=== PATIENT | female | born 1960 ===

== ENCOUNTER 2018-04-20 05:42 | Inpatient (IN) | payer BC, OTHER ==
[~2018-04-20] VITALS: Ht 165.1 cm; Wt 94.4 kg
[2018-04-20] MEDS ORDERED: THROMBIN 5,000 UNIT VIAL TP ONE (06:59)
[2018-04-20] MEDS ORDERED: INDIGO CARMINE 0.8%, 5ML ONE (06:59)
[2018-04-20] MEDS ORDERED: BACITRACIN 50,000 UNIT ONE (06:59)
[2018-04-20] MEDS ORDERED: LIDOCAINE/PF 1%, 30ML ONE (06:59)
[2018-04-20] MEDS ORDERED: BUPIVACAINE 0.25% ONE (06:59)
[2018-04-20] MEDS ORDERED: EPINEPHRINE 1 MG/ML, 1ML ONE (07:00)
[2018-04-20] MEDS ORDERED: LACTATED RINGERS 1,000 ML IV SCH (07:01)
[2018-04-20] MEDS ORDERED: LOSA50TA6 PO (07:08)
[2018-04-20] MEDS ORDERED: DICY10CA3 PO (07:08)
[2018-04-20] MEDS ORDERED: PIOG30TA3 PO (07:08)
[2018-04-20] MEDS ORDERED: GLYB5TAB3 PO (07:08)
[2018-04-20] MEDS ORDERED: OMEP-110 PO (07:08)
[2018-04-20] MEDS ORDERED: GABA600T2 PO (07:08)
[2018-04-20] MEDS ORDERED: CHLO4TAB22 PO (07:08)
[2018-04-20] MEDS ORDERED: METO5TAB2 PO (07:09)
[2018-04-20] MEDS ORDERED: DULA1.5P SC (07:09)
[2018-04-20 07:17] VITALS: BP 127/95
[2018-04-20] MEDS ORDERED: PROPOFOL 10 MG/ML, 20ML ONE ×4 (07:22)
[2018-04-20] MEDS ORDERED: FENTANYL PF 250 MCG/5ML ONE (07:22)
[2018-04-20] MEDS ORDERED: CEFAZOLIN 1,000 MG ONE ×2 (07:27)
[2018-04-20] MEDS ORDERED: SUCCINYLCHOLINE 20 MG/ML, 10ML ONE (07:30)
[2018-04-20] MEDS ORDERED: EPHEDRINE 50 MG/ML, 1ML ONE (07:35)
[2018-04-20] MEDS ORDERED: PHENYLEPHRINE 10 MG/ML ONE ×2 (07:35→07:37)
[2018-04-20] MEDS ORDERED: INSULIN SINGLE DOSE, ER SQ-INSULIN ONE ×2 (07:42→07:45)
[2018-04-20] MEDS ORDERED: ROCURONIUM 10 MG/ML,10ML ONE (07:47)
[2018-04-20] MEDS ORDERED: ONDANSETRON 2MG/ML, 2ML ONE (08:30)
[2018-04-20] MEDS ORDERED: DEXAMETHASONE 4 MG/ML, 1ML ONE ×2 (08:31)
[2018-04-20] MEDS ORDERED: BUPIVACAINE/PF 0.25% INFIL ONE (08:55)
[2018-04-20] MEDS ORDERED: MEPERIDINE/PF 25MG/0.5ML IVPush PRN (09:00)
[2018-04-20] MEDS ORDERED: HYDROmorphone 1 MG/ML, 1ML IV PRN (09:00)
[2018-04-20] MEDS ORDERED: OXYcodone 5 MG/5 ML ORAL.SOL UDC PO PRN (09:00)
[2018-04-20] MEDS ORDERED: ACETAMINOPHEN 325 MG TABLET PO PRN (09:00)
[2018-04-20] MEDS ORDERED: PROMETHAZINE 12.5 MG SUPP PR PRN (09:00)
[2018-04-20] MEDS: FENTANYL PF 100 MCG/2ML IV PRN ×4 (10:35→10:55)
[2018-04-20] MEDS ORDERED: FENTANYL PF 100 MCG/2ML ONE (10:42)
[2018-04-20] MEDS ORDERED: MORPHINE SULFATE 4 MG/ML, 1ML ONE (11:03)
[2018-04-20] MEDS: MORPHINE SULFATE 4 MG/ML, 1ML IVPush PRN ×2 (11:10→11:20)
[2018-04-20] MEDS ORDERED: DIAZEPAM 5 MG/ML, 2ML IV ONE (12:00)
[2018-04-20] MEDS ORDERED: DIAZEPAM 5 MG/ML, 2ML IV PRN (14:00)
[2018-04-20] MEDS ORDERED: HYDROcodone/APAP 5/325 TABLET PO PRN (14:00)
[2018-04-20] MEDS ORDERED: LABETALOL 5MG/ML, 20ML IV PRN (14:00)
[2018-04-20] MEDS ORDERED: ONDANSETRON 2MG/ML, 2ML IV PRN (14:00)
[2018-04-20] MEDS: NS + 20MEQ KCL 1,000 ML IV SCH (15:14)
[2018-04-20] MEDS: LABETALOL 5MG/ML, 20ML IV SCH ×2 (15:15→23:23)
[2018-04-20] MEDS ORDERED: INSULIN REGULAR 100 UNITS/ML, 3ML VIAL SQ-INSULIN SCH (16:00)
[2018-04-20] MEDS: CEFAZOLIN PMX 1GM/50ML 50 ML IVPB SCH (17:04)
[2018-04-20] MEDS: GABAPENTIN 300 MG CAPSULE PO SCH ×2 (17:04→20:16)
[2018-04-20] MEDS ORDERED: PRO AIR 90 MCG INH PRN (17:30)
[2018-04-20] MEDS ORDERED: ALBUTEROL SULFATE 2.5 MG/3 ML NPPB PRN (17:30)
[2018-04-20] MEDS: INSULIN LISPRO 100 UNITS/ML, PEN SQ-INSULIN SCH ×2 (18:15→20:35)
[2018-04-20 19:44] VITALS: BP 121/71
[2018-04-20] MEDS: CHLORPHENIRAMINE 4 MG TABLET PO PRN (20:16)
[2018-04-20 23:24] VITALS: BP 99/63
[2018-04-21] MEDS: CEFAZOLIN PMX 1GM/50ML 50 ML IVPB SCH (00:07)
[2018-04-21] MEDS: NS + 20MEQ KCL 1,000 ML IV SCH ×3 (00:07→14:00)
[2018-04-21 03:40] VITALS: BP 100/65
[2018-04-21] MEDS: DIAZEPAM 5 MG TABLET PO PRN ×3 (04:13→19:53)
[2018-04-21 05:42] LABS: ANION GAP 5 mmol/L (5-15); CALCIUM 8.1 mg/dL (8.5-10.1); CHLORIDE 110 mmol/L (98-107); CREATININE 0.58 mg/dL (0.55-1.02)
[2018-04-21 05:43] LABS: BASOPHILS # (AUTO) 0.02 x10^3/uL (0-0.1); BASOPHILS % (AUTO) 0 % (0-1); EOSINOPHILS # (AUTO) 0.01 x10^3/uL (0-0.4); EOSINOPHILS % (AUTO) 0 % (1-7); LYMPHOCYTES # (AUTO) 1.83 x10^3/uL (1-3.4); LYMPHOCYTES % (AUTO) 21 % (22-44); MD NO; MEAN CORPUSCULAR HEMOGLOBIN 32.1 pg (27.0-34.8); MEAN CORPUSCULAR HGB CONC 33.8 g/dL (32.4-35.8); MEAN PLATELET VOLUME 9.6 fL (7.4-10.4); MONOCYTES # (AUTO) 0.44 x10^3/uL (0.2-0.8); MONOCYTES % (AUTO) 5 % (2-9); NEUTROPHILS # (AUTO) 6.64 x10^3/uL (1.8-6.8); NEUTROPHILS % (AUTO) 74 % (42-75); PLATELET COUNT 151 x10^3/uL (130-400); RED BLOOD COUNT 4.31 x10^6/uL (3.82-5.3)
[2018-04-21] MEDS: LABETALOL 5MG/ML, 20ML IV SCH ×3 (06:00→22:00)
[2018-04-21 06:27] VITALS: BP 99/63
[2018-04-21 07:03] VITALS: BP 95/57
[2018-04-21] MEDS: GABAPENTIN 300 MG CAPSULE PO SCH ×3 (08:02→19:53)
[2018-04-21] MEDS: SENNA/DOCUSATE TABLET PO SCH (08:02)
[2018-04-21] MEDS: OMEPRAZOLE 20 MG CAPSULE.DR PO SCH (08:02)
[2018-04-21] MEDS: INSULIN LISPRO 100 UNITS/ML, PEN SQ-INSULIN SCH ×4 (08:03→20:18)
[2018-04-21] MEDS: OXYcodone/APAP 5/325MG TABLET PO PRN ×3 (08:15→19:53)
[2018-04-21] MEDS: CHLORPHENIRAMINE 4 MG TABLET PO PRN (08:15)
[2018-04-21] MEDS ORDERED: PIOGLITAZONE HCL 30 MG PO SCH (09:00)
[2018-04-21] MEDS ORDERED: LOSARTAN 50MG TABLET PO SCH (09:00)
[2018-04-21 12:38] VITALS: BP 111/69
[2018-04-21 19:32] VITALS: BP 114/70
[2018-04-22] MEDS: OXYcodone/APAP 5/325MG TABLET PO PRN ×2 (00:28→11:13)
[2018-04-22 00:48] VITALS: BP 108/69
[2018-04-22] MEDS: DIAZEPAM 5 MG TABLET PO PRN ×3 (04:24→10:52)
[2018-04-22] MEDS: LABETALOL 5MG/ML, 20ML IV SCH (05:41)
[2018-04-22] MEDS: NS + 20MEQ KCL 1,000 ML IV SCH (06:01)
[2018-04-22] MEDS: INSULIN LISPRO 100 UNITS/ML, PEN SQ-INSULIN SCH ×2 (06:05→08:51)
[2018-04-22 07:15] VITALS: BP 109/67
[2018-04-22] MEDS: OMEPRAZOLE 20 MG CAPSULE.DR PO SCH (08:45)
[2018-04-22] MEDS: GABAPENTIN 300 MG CAPSULE PO SCH (08:45)
[2018-04-22] MEDS: SENNA/DOCUSATE TABLET PO SCH (08:46)
[2018-04-22] MEDS: CHLORPHENIRAMINE 4 MG TABLET PO PRN (09:37)
== END 2018-04-22 11:50 | disposition home or self-care (01) | DRG 473 ==
LOC: ORIP 05:42 → 4NOR 12:29 → DCLOUNGE 04-22 11:40
PROVIDERS: ADMIT Orthopaedic Surgery Orthopaedic Surgery of the Spine; ATTEND Hospitalist
PROC: 0RB30ZZ Excision of Cervical Vertebral Disc, Open Approach (ICD-10-PCS; 2018-04-20)
PROC: 0RG20A0 Fusion of 2 or more Cervical Vertebral Joints with Interbody Fusion Device, Anterior Approach, Anterior Column, Open Approach (ICD-10-PCS; principal; 2018-04-20 07:30)
DX: M50.122 Cervical disc disorder at C5-C6 level with radiculopathy (principal); I10 Essential (primary) hypertension; E11.42 Type 2 diabetes mellitus with diabetic polyneuropathy; G43.909 Migraine, unspecified, not intractable, without status migrainosus; K21.9 Gastro-esophageal reflux disease without esophagitis; M25.78 Osteophyte, vertebrae; J45.909 Unspecified asthma, uncomplicated; Z80.6 Family history of leukemia; Z90.710 Acquired absence of both cervix and uterus; Z84.89 Family history of other specified conditions; Z80.0 Family history of malignant neoplasm of digestive organs; Z88.1 Allergy status to other antibiotic agents; Z91.041 Radiographic dye allergy status; Z91.040 Latex allergy status; Z79.899 Other long term (current) drug therapy
CPT/HCPCS: 36415; 72040; 80048; 82962; 85025; 87806; C1713; J0171; J0690; J1100; J1815; J2270; J2405; J2704; J3010; J3360; J3480; J3490; C1762; G0475; J0330; J2370; J7120